=== PATIENT | male | born 1970 | race Caucasian/White ===

== ENCOUNTER 2017-10-16 14:11 | Emergency (ER) | payer MEDICARE ==
[2017-10-16 14:29] VITALS: BP 110/72
--- NOTE | 2017-10-16 15:05 | Emergency Department Report ---
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 Patient states there is no pain. Patient also denies fevers chills at this time. Patient is not been seen in wound care. Patient's denies any nausea vomiting and diarrhea at this time. - Related Data Previous Rx's Medication Instructions Recorded Last Taken Type Clindamycin [Clindamycin CAP] 300 mg PO Q8H 7 Days cap 10/16/17 Unknown Rx Ibuprofen [Motrin] 600 mg PO Q8H PRN #20 tablet 10/16/17 Unknown Rx Allergies Allergy/AdvReac Type Severity Reaction Status Date / Time No Known Allergies Allergy Verified 10/16/17 14:28 ED Review of Systems ROS: Stated complaint: RIGHT LEG; HIP PAIN Other details as noted in HPI Comment: All other systems reviewed and negative ED Past Medical Hx - Past Medical History Previous Medical History?: Yes Additional medical history: paralysis on right side, hypothyroidism - Surgical History Past Surgical History?: Yes Additional Surgical History: back surgery - Social History Smoking Status: Former Smoker Substance Use Type: None - Medications Home Medications: Home Medications Medication Instructions Recorded Confirmed Last Taken Type Clindamycin [Clindamycin CAP] 300 mg PO Q8H 7 Days cap 10/16/17 Unknown Rx Ibuprofen [Motrin] 600 mg PO Q8H PRN #20 tablet 10/16/17 Unknown Rx ED Physical Exam - General Limitations: Language Barrier General appearance: alert, in no apparent distress - Head Head exam: Present: atraumatic, normocephalic - Eye Eye exam: Present: normal appearance - ENT ENT exam: Present: mucous membranes moist - Neck Neck exam: Present: normal inspection - Respiratory Respiratory exam: Present: normal lung sounds bilaterally. Absent: respiratory distress - Cardiovascular Cardiovascular Exam: Present: regular rate, normal rhythm. Absent: systolic murmur, diastolic murmur, rubs, gallop - GI/Abdominal GI/Abdominal exam: Present: soft, normal bowel sounds - Rectal Rectal exam: Present: deferred - Extremities Exam Extremities exam: Present: normal inspection - Back Exam Back exam: Present: normal inspection - Neurological Exam Neurological exam: Present: alert, oriented X3 - Psychiatric Psychiatric exam: Present: normal affect, normal mood - Skin Skin exam: Present: warm, dry, intact, normal color, other (the patient's hip he has a baseball sized decubitus ulcer. Stage III. The patient has good granulation tissue on the surrounding this area of this wound however centrally there is a large matting of dated tissue. There is a foul odor. There is no surrounding erythema.). Absent: rash ED Course Vital Signs 10/16/17 14:24 Temperature 98.5 F Pulse Rate 105 H Respiratory 18 Rate Blood Pressure 110/72 O2 Sat by Pulse 100 Oximetry ED Medical Decision Making - Medical Decision Making Patient has a chronic decubitus ulcer on the right hip that does appear to need debriding. This is been going on for approximately 2-3 months. Patient be started on antibiotics empirically but will be referred to wound care for possible debridement of this wound. Critical care attestation.: If time is entered above; I have spent that time in minutes in the direct care of this critically ill patient, excluding procedure time. ED Disposition Clinical Impression: Decubital ulcer Qualifiers: Pressure injury location: hip Pressure injury stage: stage 3 Laterality: right Qualified Code(s): L89.213 - Pressure ulcer of right hip, stage 3 Disposition: DC-01 TO HOME OR SELFCARE Is pt being admited?: No Does the pt Need Aspirin: No Condition: Stable Additional Instructions: Please see wound care as soon as possible. This wound needs to be cleaned by wound care giver. Referrals: [facility] [Outside] - 3-5 Days
== END 2017-10-16 15:25 | disposition home or self-care (01) ==
LOC: ED 14:11
DX: L89.213 Pressure ulcer of right hip, stage 3 (principal); E03.9 Hypothyroidism, unspecified; Z87.891 Personal history of nicotine dependence
CPT/HCPCS: 99282

== ENCOUNTER 2017-10-22 08:58 | Outpatient (CLI) | payer MEDICARE ==
[2017-10-22] MEDS ORDERED: SILVER NITRATE TP ONE ×2 (09:54→10:59)
== END 2017-10-22 08:59 | disposition home or self-care (01) ==
LOC: WOUND 08:58
PROVIDERS: ATTEND Surgery
DX: L89.213 Pressure ulcer of right hip, stage 3 (principal); I69.951 Hemiplegia and hemiparesis following unspecified cerebrovascular disease affecting right dominant side; E03.9 Hypothyroidism, unspecified
CPT/HCPCS: 11043; 11046; G0463